=== PATIENT | male | born 1990 | race African-American/Black ===

== ENCOUNTER 2020-04-18 13:26 | Emergency (ER) | payer OTHER ==
[~2020-04-18 13:26] MED LIST: Iopamidol 370 76% 100 ML VIAL ONE
[2020-04-18 14:09] LABS: Bilirubin Negative (Negative); Blood, Urine Trace (Negative); Clarity Clear (Clear); Glucose, Urine (Dipstick) Negative (Negative); Ketone, Urine Negative (Negative); Leukocyte Negative (Negative); Nitrite Negative (Negative); Protein, Urine (Dipstick) 100 mg/dL (Neg-Trace); Urobilinogen 0.2 mg/dL (Less than 2)
[2020-04-18 14:17] LABS: Bacteria/HPF Rare-Few HPF (None Seen); RBC/HPF 0-3 HPF (0-3); Squamous Epithelial 0-3 HPF (0-3); WBC/HPF None Seen HPF (0-3)
== END 2020-04-18 16:24 | disposition short-term general hospital (02) ==
LOC: NAV ERS 13:26
DX: I66.02 Occlusion and stenosis of left middle cerebral artery (principal); G45.9 Transient cerebral ischemic attack, unspecified; E11.9 Type 2 diabetes mellitus without complications; E78.5 Hyperlipidemia, unspecified; E78.00 Pure hypercholesterolemia, unspecified; I10 Essential (primary) hypertension; F17.210 Nicotine dependence, cigarettes, uncomplicated; Z79.84 Long term (current) use of oral hypoglycemic drugs; Z79.899 Other long term (current) drug therapy; Z79.82 Long term (current) use of aspirin; Z85.6 Personal history of leukemia
CPT/HCPCS: 81003; 81015; 96365; 96366; Q9967